=== PATIENT | female | born 1955 | race Two or more races ===

== ENCOUNTER 2024-02-17 20:43 | Inpatient (IN) | payer MEDICARE, OTHER ==
[~2024-02-17] VITALS: Ht 162.6 cm; Wt 48.6 kg
[~2024-02-17 20:43] MED LIST: AMLO-258 GT; ATOR20TA GT; CITA-144 GT; CLOP75TA60 GT; FAMO20 GT; LEVO112T4 PO; METO-296 GT; METO-408 PO; OXYC5 GT
[2024-02-17] MEDS: ONDANSETRON HCL 4 MG/2 ML VIAL IVP ONE (21:21)
[2024-02-17 21:25] LABS: BASOPHILS % (AUTO) 0.4 % (0.0-2.0); EOSINOPHILS % (AUTO) 1.7 % (1.0-6.0); HEMATOCRIT 32.6 % (36-46); HEMOGLOBIN 10.8 g/dL (12.0-16.0); LYMPHOCYTES # (AUTO) 1.1 K/uL (1.0-4.8); LYMPHOCYTES % (AUTO) 15.4 % (22.0-44.0); MEAN CORPUSCULAR HEMOGLOBIN 28.4 pg (26.0-34.0); MEAN CORPUSCULAR HGB CONC 33.2 G/dL (31.0-37.0); MEAN CORPUSCULAR VOLUME 85 fL (80-100); MONOCYTES # (AUTO) 0.5 K/uL (0.1-1.0); MONOCYTES % (AUTO) 6.8 % (2.0-9.0); NEUTROPHILS # (AUTO) 5.4 K/uL (1.8-7.7); NEUTROPHILS % (AUTO) 75.7 % (40.0-70.0); PLATELET COUNT (AUTO) 267 K/uL (150-450); RED BLOOD CELL COUNT(AUTO) 3.82 MIL/uL (4.00-5.20); RED CELL DISTRIBUTION WIDTH 16.1 % (11.5-14.5); WHITE BLOOD COUNT (AUTO) 7.1 K/uL (4.5-11.0)
[2024-02-17 21:35] LABS: CREATININE 0.99 mg/dL (0.60-1.30); POTASSIUM 3.9 mmol/L (3.5-5.1)
[2024-02-17 21:59] LABS: LACTIC ACID 0.8 mmol/L (0.4-2.0)
[2024-02-17] MEDS: MAGNESIUM SULFATE 2 GM/WATER 50 ML IV ONE (22:03)
[2024-02-17 22:04] LABS: ALANINE AMINOTRANSFERASE 24 U/L (12-78); ALBUMIN 3.4 g/dL (3.4-5.0); ALKALINE PHOSPHATASE 121 U/L (46-116); ASPARTATE AMINOTRANSFERASE 36 U/L (15-37); BILIRUBIN,TOTAL 0.3 mg/dL (0.1-1.0); LIPASE 27 U/L (16-77); TOTAL PROTEIN, SERUM 8.1 g/dL (6.4-8.2)
[2024-02-17 22:11] LABS: TROPONIN I-HIGH SENSITIVITY 101 ng/L (<51)
[2024-02-17] MEDS: SODIUM CHLORIDE 0.9% 1,000 ML IV ONE (22:25)
[2024-02-17] MEDS: MORPHINE SULFATE 4 MG/ML SYRINGE IVP ONE (22:26)
[2024-02-17] MEDS: IOHEXOL 9 MG/ML 500 ML BOTTLE PO ONE (22:27)
[2024-02-18] MEDS ORDERED: ACETAMINOPHEN 325 MG TABLET PO PRN (00:15)
[2024-02-18] MEDS: ASPIRIN 300 MG RECTAL SUPPOSITORY PR ONE (00:29)
[2024-02-18] MEDS ORDERED: IOHEXOL 350 MG/ML 100 ML VIAL ONE (00:34)
[2024-02-18] MEDS ORDERED: SODIUM CHLORIDE 0.9% 100 ML ONE (00:34)
[2024-02-18] MEDS: NITROGLYCERIN 2% (1 GM=INCH) OINTMENT PACKET TP SCH (01:37)
[2024-02-18] MEDS: SODIUM CHLORIDE 0.9% 250 ML IV ONE (01:37)
[2024-02-18 01:59] LABS: TROPONIN I-HIGH SENSITIVITY 100 ng/L (<51)
[2024-02-18] MEDS: MORPHINE SULFATE 4 MG/ML SYRINGE IVP ONE (06:07)
[2024-02-18] MEDS: ONDANSETRON HCL 4 MG/2 ML VIAL IVP ONE (06:07)
[2024-02-18] MEDS: LEVOTHYROXINE SODIUM 75 MCG TABLET GT SCH (06:07)
[2024-02-18 06:10] LABS: TROPONIN I-HIGH SENSITIVITY 110 ng/L (<51)
[2024-02-18] MEDS: HEPARIN SODIUM,PORCINE 5,000 UNITS/ML VIAL SQ SCH (07:26)
[2024-02-18] MEDS: ASPIRIN 81 MG CHEWABLE TABLET GT SCH (07:26)
[2024-02-18] MEDS ORDERED: DOCUSATE SODIUM 100 MG CAPSULE PO SCH (09:00)
[2024-02-18 09:05] VITALS: BP 155/81; PULSE 71; RESP 18; TEMP 97.5; O2SAT 99
[2024-02-18] MEDS: CARVEDILOL 3.125 MG TABLET GT SCH (09:35)
[2024-02-18] MEDS: AmLODIPine BESYLATE 10 MG TABLET GT SCH (09:35)
[2024-02-18] MEDS: FAMOTIDINE 20 MG TABLET GT SCH (09:36)
[2024-02-18] MEDS: ATORVASTATIN CALCIUM 20 MG TABLET GT SCH (09:36)
[2024-02-18] MEDS: SODIUM PHOSPHATE,MONO-DIBASIC 133 ML ENEMA PR ONE (09:39)
[2024-02-18] MEDS: DOCUSATE SODIUM 100 MG/10 ML LIQUID UDCUP GT SCH (09:39)
[2024-02-18] MEDS: CITALOPRAM HYDROBROMIDE 20 MG TABLET GT SCH (09:40)
[2024-02-18] MEDS: CLOPIDOGREL BISULFATE 75 MG TABLET GT SCH (09:41)
[2024-02-18] MEDS: ACETAMINOPHEN 650 MG/20.3 ML SOLUTION UDCUP GT PRN (09:42)
[2024-02-18 12:00] VITALS: BP 126/74; PULSE 62; RESP 18; TEMP 98.3; O2SAT 96
[2024-02-18 12:07] LABS: APPEARANCE,URINE CLEAR (CLEAR); BILIRUBIN,URINE NEGATIVE (NEGATIVE); COLOR,URINE LIGHT YELLOW (YELLOW); GLUCOSE, URINE (UA) NEGATIVE (NEGATIVE); KETONES,URINE NEGATIVE (NEGATIVE); LEUKOCYTE ESTERASE ,URINE TRACE (NEGATIVE); NITRATE,URINE NEGATIVE (NEGATIVE); OCCULT BLOOD,URINE NEGATIVE (NEGATIVE); PH,URINE 7.5 (5.0-8.0); PROTEIN,URINE NEGATIVE (NEGATIVE); SPECIFIC GRAVITIY, URINE 1.018 (1.003-1.030); UROBILINOGEN,URINE <=1.0 mg/dL (<=1.0)
[2024-02-18 12:24] LABS: BACTERIA,URINE Few /HPF (None Seen); RBC,URINE None Seen /HPF (0-2); WBC,URINE 0-2 /HPF (0-5)
[2024-02-18 12:25] LABS: SQUAMOUS EPITHELIAL CELL,UR Few /LPF (None Seen)
[2024-02-18] MEDS ORDERED: LEVO75 GT (12:54)
[2024-02-18] MEDS: PIPERACILLIN/TAZO 3.375 GM/D5W 50 ML IV SCH (13:36)
[2024-02-18 16:00] VITALS: BP 144/83; PULSE 67; RESP 18; TEMP 97.9; O2SAT 96
[2024-02-18] MEDS: METOCLOPRAMIDE HCL 10 MG TABLET GT PRN (16:20)
[2024-02-18] MEDS: ONDANSETRON HCL 4 MG/2 ML VIAL IVP PRN (18:08)
[2024-02-18 18:59] VITALS: BP 119/64; PULSE 64; RESP 18; TEMP 98.2; O2SAT 95
[2024-02-18 19:47] VITALS: BP 119/81; PULSE 64; RESP 18; TEMP 97.7; O2SAT 98
[2024-02-19 07:31] LABS: GLUCOMETER DEV NAME(LOC) 4E.2; GLUCOSE,POINT OF CARE 304 MG/DL (70-110)
[2024-02-19] MEDS: INSULIN GLARGINE,HUM.REC.ANLOG 100 UNITS/ML SQ SCH (09:30)
[2024-02-19] MEDS ORDERED: DEXTROSE 50%-WATER 25 GM/50 ML SYRINGE IVP PRN (09:30)
[2024-02-19] MEDS: MORPHINE SULFATE 2 MG/ML SYRINGE IVP ONE (10:41)
[2024-02-19 11:42] LABS: EOSINOPHILS % (AUTO) 2.1 % (1.0-6.0); HEMATOCRIT 32.1 % (36-46); HEMOGLOBIN 10.7 g/dL (12.0-16.0); LYMPHOCYTES # (AUTO) 0.9 K/uL (1.0-4.8); LYMPHOCYTES % (AUTO) 18.1 % (22.0-44.0); MEAN CORPUSCULAR HEMOGLOBIN 28.6 pg (26.0-34.0); MEAN CORPUSCULAR HGB CONC 33.3 G/dL (31.0-37.0); MEAN CORPUSCULAR VOLUME 86 fL (80-100); MONOCYTES # (AUTO) 0.4 K/uL (0.1-1.0); MONOCYTES % (AUTO) 8.2 % (2.0-9.0); NEUTROPHILS # (AUTO) 3.3 K/uL (1.8-7.7); NEUTROPHILS % (AUTO) 70.6 % (40.0-70.0); PLATELET COUNT (AUTO) 245 K/uL (150-450); RED BLOOD CELL COUNT(AUTO) 3.75 MIL/uL (4.00-5.20); RED CELL DISTRIBUTION WIDTH 16.7 % (11.5-14.5); WHITE BLOOD COUNT (AUTO) 4.7 K/uL (4.5-11.0)
[2024-02-19 11:50] LABS: CALCIUM, TOTAL 9.3 mg/dL (8.8-10.5); CREATININE 1.2 mg/dL (0.60-1.30); MAGNESIUM 2.2 mg/dL (1.80-2.40)
[2024-02-19] MEDS ORDERED: NALOXONE HCL 1 MG/ML 2 ML SYRINGE IVP PRN (14:00)
[2024-02-19] MEDS ORDERED: POTASSIUM CHLORIDE 20 MEQ ER TABLET PO PRN (14:00)
[2024-02-19] MEDS ORDERED: MAGNESIUM SULFATE 2 GM/WATER 50 ML IV PRN (14:00)
[2024-02-19] MEDS ORDERED: MAGNESIUM OXIDE 400 MG TABLET PO PRN (14:00)
[2024-02-19] MEDS ORDERED: MAGNESIUM SULFATE 4 GM/WATER 100 ML IV PRN (14:00)
[2024-02-19] MEDS: RINGERS SOLUTION,LACTATED 1,000 ML IV SCH (15:28)
[2024-02-19 15:42] LABS: ALBUMIN 3.3 g/dL (3.4-5.0)
[2024-02-19] MEDS: MORPHINE SULFATE 2 MG/ML SYRINGE IVP PRN (16:07)
[2024-02-19] MEDS: SENNOSIDES 8.8 MG/5 ML SYRUP UDCUP GT SCH (16:22)
[2024-02-19] MEDS: PIPERACILLIN SODIUM/TAZOBACTAM 2.25 GM in DEXTROSE 5%-WATER 50 ML IV SCH (16:23)
[2024-02-19] MEDS ORDERED: SODIUM CHLORIDE 0.9% 500 ML IV ONE (17:06)
[2024-02-19] MEDS: POLYETHYLENE GLYCOL 3350 17 GM PACKET GT SCH (20:38)
[2024-02-19] MEDS: DOCUSATE SODIUM 100 MG/10 ML LIQUID UDCUP GT SCH (20:40)
[2024-02-19 21:46] LABS: GLUCOMETER DEV NAME(LOC) 6N.2B; GLUCOSE,POINT OF CARE 134 MG/DL (70-110)
[2024-02-19 21:46] LABS: GLUCOMETER DEV NAME(LOC) 6N.2B; GLUCOSE,POINT OF CARE 106 MG/DL (70-110)
[2024-02-20] MEDS: POTASSIUM CHLORIDE 10% 40 MEQ/30 ML LIQUID UDCUP PO PRN
[2024-02-20 04:15] VITALS: BP 166/78; PULSE 74; RESP 18; TEMP 97.7; O2SAT 98
[2024-02-20] MEDS: CARVEDILOL 12.5 MG TABLET GT SCH (04:57)
[2024-02-20 07:22] LABS: BASOPHILS % (AUTO) 1.3 % (0.0-2.0); EOSINOPHILS % (AUTO) 2.4 % (1.0-6.0); HEMATOCRIT 28.7 % (36-46); HEMOGLOBIN 9.5 g/dL (12.0-16.0); LYMPHOCYTES % (AUTO) 21.5 % (22.0-44.0); MEAN CORPUSCULAR HEMOGLOBIN 28.7 pg (26.0-34.0); MEAN CORPUSCULAR HGB CONC 33.1 G/dL (31.0-37.0); MEAN CORPUSCULAR VOLUME 87 fL (80-100); MONOCYTES # (AUTO) 0.4 K/uL (0.1-1.0); MONOCYTES % (AUTO) 9.1 % (2.0-9.0); NEUTROPHILS % (AUTO) 65.7 % (40.0-70.0); PLATELET COUNT (AUTO) 230 K/uL (150-450); RED BLOOD CELL COUNT(AUTO) 3.32 MIL/uL (4.00-5.20); RED CELL DISTRIBUTION WIDTH 16.3 % (11.5-14.5); WHITE BLOOD COUNT (AUTO) 4.6 K/uL (4.5-11.0)
[2024-02-20 07:25] LABS: GLUCOMETER DEV NAME(LOC) 4E.2; GLUCOSE,POINT OF CARE 99 MG/DL (70-110)
[2024-02-20 07:29] LABS: ANION GAP 11 mmol/L (8-16); CALCIUM, TOTAL 8.5 mg/dL (8.8-10.5); CARBON DIOXIDE 21 mmol/L (22-29); CHLORIDE 101 mmol/L (98-107); CREATININE 0.91 mg/dL (0.60-1.30); GLOMERULAR FILTR. RATE CALC > 60 mL/min (>60); GLUCOSE,RANDOM 77 mg/dL (70-110); POTASSIUM 3.6 mmol/L (3.5-5.1); SODIUM SERUM 133 mmol/L (136-145); UREA NITROGEN, BLOOD 12 mg/dL (7-18)
[2024-02-20 07:55] VITALS: BP 125/68; PULSE 52; RESP 19; TEMP 98; O2SAT 95
[2024-02-20] MEDS: ETHYL ALCOHOL 62% ANTISEPTIC NASAL SANITIZER 0.6 ML AMPUL NASAL SCH (10:01)
[2024-02-20] MEDS: PIPERACILLIN/TAZO 3.375 GM/D5W 50 ML IV SCH (10:26)
[2024-02-20] MEDS ORDERED: MAGNESIUM SULFATE 4 GM/WATER 100 ML IV PRN (14:30)
[2024-02-20] MEDS ORDERED: MAGNESIUM OXIDE 400 MG TABLET PO PRN (14:30)
[2024-02-20] MEDS: PEG 3350/NA SULF,BICARB,CL/KCL 4000 ML SOLUTION PEG ONE (15:37)
[2024-02-20 16:29] LABS: ALBUMIN 2.4 g/dL (3.4-5.0)
[2024-02-20 19:44] VITALS: BP 163/89; PULSE 65; RESP 20; TEMP 97.6; O2SAT 100
[2024-02-20 22:01] LABS: GLUCOMETER DEV NAME(LOC) 4E.2; GLUCOSE,POINT OF CARE 110 MG/DL (70-110)
[2024-02-20 23:11] LABS: GLUCOMETER DEV NAME(LOC) 6N.2B; GLUCOSE,POINT OF CARE 102 MG/DL (70-110)
[2024-02-20 23:11] LABS: GLUCOMETER DEV NAME(LOC) 6N.2B; GLUCOSE,POINT OF CARE 103 MG/DL (70-110)
[2024-02-20] MEDS: MAGNESIUM SULFATE 2 GM/WATER 50 ML IV PRN (23:18)
[2024-02-21 09:13] VITALS: BP 155/79; PULSE 65; RESP 18; TEMP 97.8; O2SAT 100
[2024-02-21 11:45] LABS: GLUCOMETER DEV NAME(LOC) 6N.2B; GLUCOSE,POINT OF CARE 102 MG/DL (70-110)
[2024-02-21 12:15] LABS: GLUCOMETER DEV NAME(LOC) 6N.2B; GLUCOSE,POINT OF CARE 122 MG/DL (70-110)
[2024-02-21] MEDS: BISACODYL 10 MG RECTAL RECTAL SUPPOSITORY PR ONE (16:00)
[2024-02-21 17:16] VITALS: BP 152/74; PULSE 52; RESP 18; TEMP 97.6; O2SAT 100
[2024-02-21 20:39] VITALS: BP 159/97; PULSE 64; RESP 22; TEMP 97.7; O2SAT 94
[2024-02-21 22:06] LABS: GLUCOMETER DEV NAME(LOC) 4E.2; GLUCOSE,POINT OF CARE 104 MG/DL (70-110)
[2024-02-22 04:18] VITALS: BP 151/91; PULSE 55; RESP 20; TEMP 97.6; O2SAT 96
[2024-02-22 08:02] VITALS: BP 148/88; PULSE 53; RESP 20; TEMP 98.4; O2SAT 97
[2024-02-22 08:56] LABS: GLUCOMETER DEV NAME(LOC) 6N.2B; GLUCOSE,POINT OF CARE 79 MG/DL (70-110)
[2024-02-22 08:56] LABS: GLUCOMETER DEV NAME(LOC) 6N.2B; GLUCOSE,POINT OF CARE 81 MG/DL (70-110)
[2024-02-22 13:24] LABS: BASOPHILS % (AUTO) 1.2 % (0.0-2.0); HEMATOCRIT 26.3 % (36-46); HEMOGLOBIN 8.7 g/dL (12.0-16.0); LYMPHOCYTES # (AUTO) 1.6 K/uL (1.0-4.8); MEAN CORPUSCULAR VOLUME 85 fL (80-100); MONOCYTES # (AUTO) 0.5 K/uL (0.1-1.0); MONOCYTES % (AUTO) 11.6 % (2.0-9.0); NEUTROPHILS # (AUTO) 2.4 K/uL (1.8-7.7); NEUTROPHILS % (AUTO) 52.2 % (40.0-70.0); PLATELET COUNT (AUTO) 228 K/uL (150-450); RED CELL DISTRIBUTION WIDTH 16.8 % (11.5-14.5); WHITE BLOOD COUNT (AUTO) 4.6 K/uL (4.5-11.0)
[2024-02-22 13:42] LABS: ALBUMIN 2.5 g/dL (3.4-5.0); BILIRUBIN,TOTAL 0.3 mg/dL (0.1-1.0); CALCIUM, TOTAL 8.6 mg/dL (8.8-10.5); CREATININE 1.03 mg/dL (0.60-1.30); TOTAL PROTEIN, SERUM 5.8 g/dL (6.4-8.2)
[2024-02-22] MEDS: POTASSIUM CHL 10 MEQ/WATER 50 ML IV PRN (14:09)
[2024-02-22 17:03] VITALS: BP 146/86; PULSE 58; RESP 20; TEMP 97.8; O2SAT 96
[2024-02-22 20:16] LABS: GLUCOMETER DEV NAME(LOC) 4E.2; GLUCOSE,POINT OF CARE 122 MG/DL (70-110)
[2024-02-22 20:16] LABS: GLUCOMETER DEV NAME(LOC) 4E.2; GLUCOSE,POINT OF CARE 87 MG/DL (70-110)
[2024-02-22 21:00] VITALS: BP 154/74; PULSE 58; RESP 20; TEMP 98; O2SAT 100
[2024-02-23] VITALS: BP 163/77; PULSE 46; RESP 20; O2SAT 99
[2024-02-23 01:20] LABS: GLUCOMETER DEV NAME(LOC) 4E.2; GLUCOSE,POINT OF CARE 104 MG/DL (70-110)
[2024-02-23 02:28] VITALS: BP 166/75; PULSE 51; RESP 24; TEMP 97.7; O2SAT 94
[2024-02-23 07:32] VITALS: BP 152/70; PULSE 50; RESP 20; TEMP 98; O2SAT 96
[2024-02-23 07:41] LABS: GLUCOMETER DEV NAME(LOC) 5N.2C; GLUCOSE,POINT OF CARE 78 MG/DL (70-110)
[2024-02-23 07:44] LABS: CALCIUM, TOTAL 9.4 mg/dL (8.8-10.5); CREATININE 0.97 mg/dL (0.60-1.30); POTASSIUM 3.7 mmol/L (3.5-5.1)
[2024-02-23 11:31] VITALS: BP 146/69; PULSE 52; RESP 18; TEMP 98.1; O2SAT 95
[2024-02-23 16:00] VITALS: BP 132/70; PULSE 50; RESP 18; TEMP 98.2; O2SAT 96
[2024-02-23 20:06] VITALS: BP 149/87; PULSE 55; RESP 19; TEMP 98.1; O2SAT 98
[2024-02-23 20:21] LABS: GLUCOMETER DEV NAME(LOC) 5N.2C; GLUCOSE,POINT OF CARE 82 MG/DL (70-110)
[2024-02-23 20:21] LABS: GLUCOMETER DEV NAME(LOC) 5N.2C; GLUCOSE,POINT OF CARE 84 MG/DL (70-110)
[2024-02-24] VITALS (7 sets, daily range): BP systolic 125–185; BP diastolic 67–93; PULSE 57–58; RESP 18–20; TEMP 97.7–98.7; O2SAT 95–99
[2024-02-24 05:50] LABS: GLUCOMETER DEV NAME(LOC) 5N.1D; GLUCOSE,POINT OF CARE 86 MG/DL (70-110)
[2024-02-24 06:50] LABS: BASOPHILS % (AUTO) 3.4 % (0.0-2.0); EOSINOPHILS % (AUTO) 1.5 % (1.0-6.0); HEMATOCRIT 34.9 % (36-46); HEMOGLOBIN 11.7 g/dL (12.0-16.0); LYMPHOCYTES # (AUTO) 1.8 K/uL (1.0-4.8); LYMPHOCYTES % (AUTO) 35.5 % (22.0-44.0); MEAN CORPUSCULAR HEMOGLOBIN 28.6 pg (26.0-34.0); MEAN CORPUSCULAR HGB CONC 33.6 G/dL (31.0-37.0); MEAN CORPUSCULAR VOLUME 85 fL (80-100); MONOCYTES # (AUTO) 0.6 K/uL (0.1-1.0); MONOCYTES % (AUTO) 11.8 % (2.0-9.0); NEUTROPHILS # (AUTO) 2.5 K/uL (1.8-7.7); NEUTROPHILS % (AUTO) 47.8 % (40.0-70.0); PLATELET COUNT (AUTO) 231 K/uL (150-450); RED CELL DISTRIBUTION WIDTH 16.9 % (11.5-14.5); WHITE BLOOD COUNT (AUTO) 5.1 K/uL (4.5-11.0)
[2024-02-24 06:53] LABS: CALCIUM, TOTAL 9.3 mg/dL (8.8-10.5); CREATININE 0.96 mg/dL (0.60-1.30)
[2024-02-24 07:01] LABS: POTASSIUM 2.6 mmol/L (3.5-5.1)
[2024-02-24 14:25] LABS: GLUCOMETER DEV NAME(LOC) 5N.2C; GLUCOSE,POINT OF CARE 88 MG/DL (70-110)
[2024-02-24 14:25] LABS: GLUCOMETER DEV NAME(LOC) 5N.2C; GLUCOSE,POINT OF CARE 72 MG/DL (70-110)
[2024-02-25 00:11] VITALS: BP 145/76; PULSE 57; RESP 18; TEMP 97.7; O2SAT 99
[2024-02-25 06:55] LABS: GLUCOMETER DEV NAME(LOC) 5N.2C; GLUCOSE,POINT OF CARE 106 MG/DL (70-110)
[2024-02-25 07:20] LABS: GLUCOMETER DEV NAME(LOC) 5N.1D; GLUCOSE,POINT OF CARE 111 MG/DL (70-110)
[2024-02-25 08:00] VITALS: BP 139/72; PULSE 54; RESP 18; TEMP 97.5; O2SAT 99
[2024-02-25 08:01] LABS: GLUCOMETER DEV NAME(LOC) 6N.2B; GLUCOSE,POINT OF CARE 90 MG/DL (70-110)
[2024-02-25] MEDS: INSULIN LISPRO 100 UNITS/ML SQ PRN (12:28)
[2024-02-26 05:51] LABS: GLUCOMETER DEV NAME(LOC) 5N.2C; GLUCOSE,POINT OF CARE 159 MG/DL (70-110)
== END 2024-02-25 16:35 | DRG 391 ==
LOC: EMS 20:43 → EDH 02-18 00:33 → 5S 02-18 08:50 → 4E 02-18 18:20 → 5N 02-23 02:27
PROVIDERS: ADMIT Internal Medicine; ATTEND Internal Medicine
PROC: 05HC33Z Insertion of Infusion Device into Left Basilic Vein, Percutaneous Approach (ICD-10-PCS; principal; 2024-02-20)
DX: K52.89 Other specified noninfective gastroenteritis and colitis (principal); E43 Unspecified severe protein-calorie malnutrition; E87.1 Hypo-osmolality and hyponatremia; R64 Cachexia; Z68.1 Body mass index [BMI] 19.9 or less, adult; E03.9 Hypothyroidism, unspecified; R62.7 Adult failure to thrive; E87.6 Hypokalemia; I10 Essential (primary) hypertension; R13.10 Dysphagia, unspecified; I25.10 Atherosclerotic heart disease of native coronary artery without angina pectoris; R41.89 Other symptoms and signs involving cognitive functions and awareness; J44.9 Chronic obstructive pulmonary disease, unspecified; R33.9 Retention of urine, unspecified; D64.9 Anemia, unspecified; E11.649 Type 2 diabetes mellitus with hypoglycemia without coma; R00.1 Bradycardia, unspecified; Z95.1 Presence of aortocoronary bypass graft; Z93.1 Gastrostomy status; Z87.891 Personal history of nicotine dependence
CPT/HCPCS: 36245; 36569; 74018; 74177; 76937; 80048; 80053; 80076; 81001; 82040; 82962; 83605; 83690; 83735; 84132; 84443; 84484; 85025; 87081; 87481; 93005; 93306; 99285; G0378; J1644; J1815; J2270; J2405; J2543; J3475; J3480; J7030; J7040; J7050; J7060; J7120; 36415-L1; 36415-TC